=== PATIENT | female | born 1990 | race Caucasian/White ===

== ENCOUNTER 2017-07-31 12:15 | Emergency (ER) | payer MEDICAID ==
[~2017-07-31] VITALS: Ht 160 cm; Wt 77.1 kg
[2017-07-31 12:23] VITALS: BP_SYST 128
[2017-07-31] MEDS ORDERED: NACL 0.9% 1,000 ML IV ONE (12:30)
[2017-07-31] MEDS ORDERED: ONDANSETRON HCL 4 MG/2 ML VIAL IVP ONE (12:30)
[2017-07-31] MEDS ORDERED: DIPHENHYDRAMINE INJ 50 MG/ML VIAL IVP ONE (12:30)
[2017-07-31 12:50] LABS: BASOPHILS # (AUTO) 0.1 K/uL (0.0-0.2); BASOPHILS % (AUTO) 0.7 % (0.0-2.0); EOSINOPHILS # (AUTO) 0.1 K/uL (0.0-0.4); EOSINOPHILS % (AUTO) 1.6 % (0.0-4.0); HEMATOCRIT 43.8 % (36-48); HEMOGLOBIN 14.4 g/dL (12.0-16.0); LYMPHOCYTES # (AUTO) 2.7 K/uL (1.0-5.5); LYMPHOCYTES % (AUTO) 35.6 % (20.5-51.5); MEAN CORPUSCULAR HEMOGLOBIN 29 pg (27-31); MEAN CORPUSCULAR HGB CONC 33 % (32-36); MEAN CORPUSCULAR VOLUME 88 fL (79.0-98.0); MONOCYTES # (AUTO) 0.7 K/uL (0.0-1.0); MONOCYTES % (AUTO) 9.3 % (1.7-9.3); NEUTROPHILS % (AUTO) 52.8 % (40.0-70.0); PLATELET COUNT (AUTO) 337 K/uL (130-430); RED BLOOD CELL COUNT(AUTO) 4.97 MIL/uL (4.2-6.2); RED CELL DISTRIBUTION WIDTH 11.8 % (9.0-15.0); WHITE BLOOD COUNT (AUTO) 7.6 K/uL (4.8-10.8)
[2017-07-31 13:00] LABS: BILIRUBIN,URINE NEGATIVE (NEGATIVE); CLARITY/URINE SL HAZY (CLEAR); COLOR,URINE YELLOW (YELLOW); GLUCOSE,URINE NEGATIVE (NEGATIVE); KETONES,URINE NEGATIVE (NEGATIVE); LEUKOCYTE ESTERASE ,URINE NEGATIVE (NEGATIVE); NITRITE, URINE NEGATIVE (NEGATIVE); PROTEIN URINE NEGATIVE (NEGATIVE); UROBILINOGEN,URINE 0.2 (0.2-1.0)
[2017-07-31 13:01] LABS: BLOOD, URINE TRACE (NEGATIVE)
[2017-07-31 13:06] LABS: CALCIUM 9.4 mg/dL (8.4-11.0); CREATININE 0.7 mg/dL (0.55-1.30); POTASSIUM 3.8 mmol/L (3.5-5.1)
[2017-07-31 13:07] LABS: BACTERIA,URINE RARE /HPF (None Seen); RBC,URINE 0-3 /HPF (0-3); WBC,URINE 0-3 /HPF (0-3)
[2017-07-31 13:21] LABS: ALBUMIN 4.1 g/dL (3.4-4.8); TOTAL BILIRUBIN 0.4 mg/dL (0.0-1.0)
[2017-07-31] MEDS ORDERED: DIPHENOXYLATE HCL/ATROP SULF 2.5 MG TAB PO ONE (13:45)
[2017-07-31 13:55] VITALS: BP_SYST 149
== END 2017-07-31 13:55 | disposition home or self-care (01) ==
LOC: SED 12:15
DX: K52.9 Noninfective gastroenteritis and colitis, unspecified (principal)
CPT/HCPCS: 36415; 80053; 81000; 81025; 83690; 85025; 96361; 96374; 96375; 99284; J1200; J2405; J7030

== ENCOUNTER 2018-02-25 17:07 | Emergency (ER) | payer MEDICAID ==
[~2018-02-25] VITALS: Ht 160 cm; Wt 83.5 kg
[2018-02-25 17:27] VITALS: BP_SYST 150
[2018-02-25] MEDS ORDERED: ONDANSETRON HCL 4 MG/2 ML VIAL IVP ONE ×2 (17:45→19:30)
[2018-02-25] MEDS ORDERED: NACL 0.9% 1,000 ML IV ONE (17:45)
[2018-02-25] MEDS ORDERED: MORPHINE 4 MG/ML INJ. SYRINGE IVP ONE (17:45)
[2018-02-25 18:17] LABS: BASOPHILS # (AUTO) 0.1 K/uL (0.0-0.2); EOSINOPHILS # (AUTO) 0.2 K/uL (0.0-0.4); EOSINOPHILS % (AUTO) 1.6 % (0.0-4.0); HEMATOCRIT 42.8 % (36-48); HEMOGLOBIN 14.1 g/dL (12.0-16.0); LYMPHOCYTES # (AUTO) 2.9 K/uL (1.0-5.5); MEAN CORPUSCULAR HEMOGLOBIN 29 pg (27-31); MEAN CORPUSCULAR HGB CONC 33 % (32-36); MEAN CORPUSCULAR VOLUME 88 fL (79.0-98.0); MONOCYTES % (AUTO) 8.1 % (1.7-9.3); NEUTROPHILS # (AUTO) 8.3 K/uL (1.8-7.7); NEUTROPHILS % (AUTO) 66.3 % (40.0-70.0); PLATELET COUNT (AUTO) 334 K/uL (130-430); RED BLOOD CELL COUNT(AUTO) 4.88 MIL/uL (4.2-6.2); WHITE BLOOD COUNT (AUTO) 12.5 K/uL (4.8-10.8)
[2018-02-25 18:22] LABS: CALCIUM 8.9 mg/dL (8.4-11.0); CREATININE 0.75 mg/dL (0.55-1.30); POTASSIUM 3.6 mmol/L (3.5-5.1)
[2018-02-25 18:27] LABS: ALBUMIN 3.9 g/dL (3.4-4.8); TOTAL BILIRUBIN 0.3 mg/dL (0.0-1.0)
[2018-02-25 18:35] LABS: BILIRUBIN,URINE 1+ (NEGATIVE); BLOOD, URINE 3+ (NEGATIVE); CLARITY/URINE CLOUDY (CLEAR); COLOR,URINE YELLOW (YELLOW); GLUCOSE,URINE NEGATIVE (NEGATIVE); KETONES,URINE TRACE (NEGATIVE); LEUKOCYTE ESTERASE ,URINE TRACE (NEGATIVE); NITRITE, URINE NEGATIVE (NEGATIVE); PROTEIN URINE 1+ (NEGATIVE)
[2018-02-25 18:42] LABS: BACTERIA,URINE MODERATE /HPF (None Seen); RBC,URINE >100 /HPF (0-3)
[2018-02-25] MEDS ORDERED: cefTRIAXone 1 GM IVPB PREMIX 50 ML IV ONE (19:30)
[2018-02-25] MEDS ORDERED: MORPHINE 2 MG/ML INJ. SYRINGE IVP ONE (19:45)
[2018-02-25 21:00] VITALS: BP_SYST 129
== END 2018-02-25 21:00 | disposition home or self-care (01) ==
LOC: SED 17:07
DX: N39.0 Urinary tract infection, site not specified (principal); K59.00 Constipation, unspecified; D72.829 Elevated white blood cell count, unspecified; R03.0 Elevated blood-pressure reading, without diagnosis of hypertension
CPT/HCPCS: 36415; 74176; 80053; 81000; 83605; 83690; 85025; 87040; 87086; 96365; 96375; 96376; 99285; J0696; J2270 ×2; J2405; J7030

== ENCOUNTER 2018-03-04 00:13 | Emergency (ER) | payer MEDICAID ==
[~2018-03-04] VITALS: Ht 160 cm; Wt 83.5 kg
[2018-03-04 00:49] VITALS: BP_SYST 143
[2018-03-04] MEDS ORDERED: NACL 0.9% 1,000 ML IV ONE (05:02)
[2018-03-04 05:15] LABS: BILIRUBIN,URINE NEGATIVE (NEGATIVE); BLOOD, URINE NEGATIVE (NEGATIVE); CLARITY/URINE CLEAR (CLEAR); COLOR,URINE YELLOW (YELLOW); GLUCOSE,URINE NEGATIVE (NEGATIVE); KETONES,URINE NEGATIVE (NEGATIVE); LEUKOCYTE ESTERASE ,URINE NEGATIVE (NEGATIVE); NITRITE, URINE NEGATIVE (NEGATIVE); PROTEIN URINE NEGATIVE (NEGATIVE); UROBILINOGEN,URINE 0.2 (0.2-1.0)
[2018-03-04] MEDS ORDERED: MORPHINE 4 MG/ML INJ. SYRINGE IVP ONE (05:15)
[2018-03-04] MEDS ORDERED: ONDANSETRON HCL 4 MG/2 ML VIAL IVP ONE (05:15)
[2018-03-04] MEDS ORDERED: IOHEXOL 100 ML IV ONE (06:11)
[2018-03-04 06:40] LABS: BASOPHILS # (AUTO) 0.1 K/uL (0.0-0.2); BASOPHILS % (AUTO) 0.9 % (0.0-2.0); EOSINOPHILS # (AUTO) 0.1 K/uL (0.0-0.4); EOSINOPHILS % (AUTO) 1.1 % (0.0-4.0); HEMATOCRIT 43.7 % (36-48); HEMOGLOBIN 14.8 g/dL (12.0-16.0); LYMPHOCYTES # (AUTO) 3.9 K/uL (1.0-5.5); LYMPHOCYTES % (AUTO) 33.9 % (20.5-51.5); MEAN CORPUSCULAR HEMOGLOBIN 30 pg (27-31); MEAN CORPUSCULAR HGB CONC 34 % (32-36); MEAN CORPUSCULAR VOLUME 89 fL (79.0-98.0); MONOCYTES # (AUTO) 0.9 K/uL (0.0-1.0); MONOCYTES % (AUTO) 7.6 % (1.7-9.3); NEUTROPHILS # (AUTO) 6.5 K/uL (1.8-7.7); NEUTROPHILS % (AUTO) 56.5 % (40.0-70.0); PLATELET COUNT (AUTO) 317 K/uL (130-430); RED CELL DISTRIBUTION WIDTH 11.9 % (9.0-15.0); WHITE BLOOD COUNT (AUTO) 11.5 K/uL (4.8-10.8)
[2018-03-04 06:43] LABS: CALCIUM 9.2 mg/dL (8.4-11.0); CREATININE 0.73 mg/dL (0.55-1.30); POTASSIUM 3.6 mmol/L (3.5-5.1)
[2018-03-04 06:47] LABS: ALBUMIN 4.1 g/dL (3.4-4.8); TOTAL BILIRUBIN 0.3 mg/dL (0.0-1.0)
[2018-03-04 07:55] VITALS: BP_SYST 130
== END 2018-03-04 07:55 | disposition home or self-care (01) ==
LOC: SED 00:13
DX: R10.30 Lower abdominal pain, unspecified (principal); R11.2 Nausea with vomiting, unspecified; E03.9 Hypothyroidism, unspecified
CPT/HCPCS: 36415; 74177; 80053; 81003; 83690; 85025; 96361; 96374; 96375; 99285; J2270; J2405; J7030; Q9967

== ENCOUNTER 2018-11-03 15:36 | Emergency (ER) | payer MEDICAID ==
[~2018-11-03] VITALS: Ht 157.5 cm; Wt 79.4 kg
[2018-11-03 15:45] VITALS: BP_SYST 141
[2018-11-03 18:00] VITALS: BP_SYST 140
[2018-11-03] MEDS ORDERED: DIPH-TET-PERTUS Vaccine 0.5 ML VIAL (ADACEL) I.M. ONE (18:00)
== END 2018-11-03 18:00 | disposition home or self-care (01) ==
LOC: SED 15:36
DX: S61.011A Laceration without foreign body of right thumb without damage to nail, initial encounter (principal); L25.9 Unspecified contact dermatitis, unspecified cause; R03.0 Elevated blood-pressure reading, without diagnosis of hypertension; W27.2XXA Contact with scissors, initial encounter; Y93.89 Activity, other specified; Y92.89 Other specified places as the place of occurrence of the external cause; Y99.8 Other external cause status
CPT/HCPCS: 90715; 99283

== ENCOUNTER 2019-10-07 20:17 | Inpatient (IN) | payer MEDICAID ==
[~2019-10-07] VITALS: Ht 160 cm; Wt 90.7 kg
[2019-10-07 20:18] VITALS: BP_SYST 117
--- NOTE | 2019-10-07 20:18 | NUR ---
Patient to ER bed 05 to gown for evaluation. Side rails up. Report given to JESSE Hays.
--- NOTE | 2019-10-07 20:18 | NUR ---
Pt c/o allergic reaction s/p eating a spicy pasta sauce ~1915. Pt states that she is allergic to horse raddish and believes that it may have been in the sauce. Pt states that about 5 minutes later she broke out into hives. She states that she received some relief from a steroid cream and from taking Benadryl 100 mg PO. Pt then developed SOB, so she used an Epi-pen. She then called a nurse hot line and was instructed to go to ER. No hives or rashes noted, airway patent, respirations even and non-labored, mild tachypnea noted. BBS clear. Non-productive cough noted. Pt arrives with 20 GA PIV to LHA placed by EMS ELASTIC CUTTER. Sinus tachycardia noted to bedside chemical processing equipment repairer with HR 150, B/P 127/50. Pt c/o sternal C/P reproducible with palpation. Pt states that she has a hx of tachycardia and has received a stress test in the past with questionable heart attack. Dr. Hutchison notified.
--- NOTE | 2019-10-07 20:27 | NUR ---
ER at bedside examining patient.
[2019-10-07] MEDS ORDERED: NACL 0.9% 1,000 ML IV ONE ×3 (20:31→23:05)
--- NOTE | 2019-10-07 20:35 | NUR ---
Blood collected and sent to lab.
[2019-10-07] MEDS ORDERED: methylPREDNISolone SOD SUCC/PF 62.5 MG/ML VIAL IVP ONE (20:45)
[2019-10-07 20:54] LABS: BASOPHILS # (AUTO) 0.1 K/uL (0.0-0.2); BASOPHILS % (AUTO) 0.6 % (0.0-2.0); EOSINOPHILS # (AUTO) 0.2 K/uL (0.0-0.4); EOSINOPHILS % (AUTO) 1.5 % (0.0-4.0); HEMOGLOBIN 12.8 g/dL (12.0-16.0); LYMPHOCYTES # (AUTO) 6.3 K/uL (1.0-5.5); LYMPHOCYTES % (AUTO) 46.2 % (20.5-51.5); MEAN CORPUSCULAR HEMOGLOBIN 28 pg (27-31); MEAN CORPUSCULAR HGB CONC 32 % (32-36); MEAN CORPUSCULAR VOLUME 88 fL (79.0-98.0); MONOCYTES # (AUTO) 1.4 K/uL (0.0-1.0); MONOCYTES % (AUTO) 10.7 % (1.7-9.3); NEUTROPHILS # (AUTO) 5.5 K/uL (1.8-7.7); PLATELET COUNT (AUTO) 357 K/uL (130-430); RED BLOOD CELL COUNT(AUTO) 4.55 MIL/uL (4.2-6.2); RED CELL DISTRIBUTION WIDTH 13.3 % (9.0-15.0); WHITE BLOOD COUNT (AUTO) 13.5 K/uL (4.8-10.8)
--- NOTE | 2019-10-07 21:00 | NUR ---
Pt denies c/o C/P or SOB, airway patent, no hives noted. No needs verbalized at this time.
[2019-10-07 21:22] LABS: POTASSIUM 2.6 mmol/L (3.5-5.1)
[2019-10-07 21:23] LABS: CALCIUM 8.1 mg/dL (8.4-11.0); CREATININE 0.86 mg/dL (0.55-1.30); TOTAL BILIRUBIN 0.2 mg/dL (0.0-1.0)
--- NOTE | 2019-10-07 21:28 | NUR ---
Pt c/o nausea. HR 128, B/P 143/62.
[2019-10-07] MEDS ORDERED: POTASSIUM CHLORIDE 10 MEQ in NACL 0.9% 1,000 ML IV SCH (21:30)
[2019-10-07] MEDS ORDERED: ONDANSETRON HCL 4 MG/2 ML VIAL IVP ONE (21:30)
[2019-10-07] MEDS ORDERED: POTASSIUM CHLORIDE 20 MEQ TAB.PRT.SR PO ONE (21:30)
[2019-10-07 21:35] LABS: BILIRUBIN,URINE NEGATIVE (NEGATIVE); BLOOD, URINE NEGATIVE (NEGATIVE); COLOR,URINE YELLOW (YELLOW); GLUCOSE,URINE NEGATIVE (NEGATIVE); KETONES,URINE NEGATIVE (NEGATIVE); LEUKOCYTE ESTERASE ,URINE NEGATIVE (NEGATIVE); NITRITE, URINE NEGATIVE (NEGATIVE); PROTEIN URINE NEGATIVE (NEGATIVE); UROBILINOGEN,URINE 0.2 (0.2-1.0)
--- NOTE | 2019-10-07 21:36 | NUR ---
X-ray at bedside.
--- NOTE | 2019-10-07 21:42 | NUR ---
Pt moved to ER bed 7. Pt verbalizes relief in nausea.
[2019-10-07 21:48] LABS: CLARITY/URINE CLEAR (CLEAR)
--- NOTE | 2019-10-07 22:00 | NUR ---
HR 120. Denies c/o C/P or SOB. Dr. Murrieta aware. No needs verbalized at this time.
[2019-10-07] MEDS ORDERED: KCL 20 mEq in 100 mL (PREMIX) 100 ML IV ONE (22:15)
--- NOTE | 2019-10-07 22:30 | NUR ---
Pt c/o burning to LHA r/t Potassium infusion. Rate decreased to 40 mL/hr. Pt verbalizes improvement in pain.
--- NOTE | 2019-10-07 23:05 | NUR ---
T 99, P 130, R 24, B/P 93/72, SPO2 99% RA. Dr. Murrieta notified. NS bolus x 1 Liter now infusing to patent and secure PIV LHA.
--- NOTE | 2019-10-07 23:23 | NUR ---
Patient will be admitted to care of Dr. Shelby. Admitted to Tele unit. Will go to room 134B. Belongings list completed. Complete and up to date summary report printed. SBAR report to be given at bedside with opportunity for questions.
[2019-10-07] MEDS ORDERED: SYN50 PO (23:34)
[2019-10-07] MEDS ORDERED: DICY10CA13 PO (23:34)
[2019-10-07] MEDS ORDERED: ESOM20CA38 PO (23:34)
[2019-10-07] MEDS ORDERED: ATEN-41 PO (23:34)
[2019-10-07] MEDS ORDERED: ESCI10TA PO (23:34)
[2019-10-07] MEDS ORDERED: CYCL-10 PO ×2 (23:34)
[2019-10-07] MEDS ORDERED: LORA10TA7 PO (23:34)
[2019-10-07] MEDS ORDERED: AZU500 PO (23:34)
[2019-10-07] MEDS ORDERED: GABA-531 PO (23:34)
[2019-10-07] MEDS ORDERED: AZEL137S7 NS (23:35)
[2019-10-07] MEDS ORDERED: FLO44 INH (23:35)
--- NOTE | 2019-10-07 23:35 | NUR ---
Medication reconciliation completed with information provided by patient. Any prior medication reconciliation on file was reviewed and corrected.
[2019-10-07 23:39] VITALS: BP_SYST 127
--- NOTE | 2019-10-07 23:39 | NUR ---
ADMISSION NOTE Received patient from ER via gurney. Patient admitted with diagnosis of Allergic Reaction and Hypokalemia under medical supervision of Dr. Shelby. Patient is awake, alert, oriented X4. Patient oriented to hospital room, call light, toileting, pain management and safety-teach back done. Personal belongings checked and Belongings List documented. Call light within reach.
[2019-10-08 00:12] VITALS: BP_SYST 127
--- NOTE | 2019-10-08 01:50 | NUR ---
DR. LO ROUNDS DR. LO AT NURSES STATION. POC DISCUSSED.
[2019-10-08] MEDS ORDERED: methylPREDNISolone SOD SUCC/PF 62.5 MG/ML VIAL IVP ONE (02:15)
[2019-10-08] MEDS ORDERED: NACL 0.9% 1,000 ML IV ONE (02:15)
[2019-10-08] MEDS ORDERED: DIPHENHYDRAMINE INJ 50 MG/ML VIAL IVP PRN (02:15)
[2019-10-08] MEDS ORDERED: ALBUTEROL SULFATE 0.083% 2.5 MG/3 ML VIAL.NEB INH PRN (02:15)
[2019-10-08] MEDS ORDERED: CYCLOBENZAPRINE HCL 10 MG TABLET (FLEXERIL) PO PRN (02:30)
[2019-10-08 02:47] VITALS: BP_SYST 127
[2019-10-08] MEDS: NACL 0.9% 1,000 ML IV SCH ×3 (02:50→20:42)
[2019-10-08] MEDS: HYDROcodone/ACETAMIN 5-325 MG TAB (NORCO/ VICODIN) PO PRN ×2 (02:56→21:01)
[2019-10-08] MEDS: ONDANSETRON HCL 4 MG/2 ML VIAL IVP PRN (02:56)
--- NOTE | 2019-10-08 03:01 | NUR ---
MED PASS/PRN MEDICATIONS ONE TIME DOSE OF SOLU-MEDROL ADMINISTERED ORDERED. PRN MEDICATIONS ZOFRAN AND NORCO ALSO ADMINISTERED PER PT REQUEST FOR NAUSEA AND PAIN. MEDICATION ACTIONS AND POTENTIAL SIDE EFFECTS DISCUSSED. PT TOLERATED WELL. NO S/S OF ACUTE DISTRESS. SAFETY MAINTAINED. WILL MONITOR.
--- NOTE | 2019-10-08 05:00 | NUR ---
AMBULATED TO RESTROOM PT AMBULATED TO RESTROOM WITH NURSE ASSIST. GAIT NOTED TO STEADY ALTHOUGH PT WALKS WITH A BOOT ON HER RIGHT FOOT. PT TOLERATED ACTIVITY WELL. NO S/S OF DISTRESS. PT RETURNED SAFELY TO BED AND REPOSITIONED HERSELF FOR COMFORT. RIGHT LEG ELEVATED ON PILLOW. SAFETY PRECAUTIONS MAINTAINED. WILL MONITOR.
[2019-10-08 05:57] LABS: BASOPHILS % (AUTO) 0.1 % (0.0-2.0); HEMATOCRIT 37.6 % (36-48); HEMOGLOBIN 12.3 g/dL (12.0-16.0); LYMPHOCYTES # (AUTO) 1.1 K/uL (1.0-5.5); LYMPHOCYTES % (AUTO) 10.3 % (20.5-51.5); MEAN CORPUSCULAR HEMOGLOBIN 29 pg (27-31); MEAN CORPUSCULAR HGB CONC 33 % (32-36); MEAN CORPUSCULAR VOLUME 87 fL (79.0-98.0); MONOCYTES # (AUTO) 0.1 K/uL (0.0-1.0); MONOCYTES % (AUTO) 0.6 % (1.7-9.3); NEUTROPHILS # (AUTO) 9.5 K/uL (1.8-7.7); PLATELET COUNT (AUTO) 296 K/uL (130-430); RED BLOOD CELL COUNT(AUTO) 4.31 MIL/uL (4.2-6.2); WHITE BLOOD COUNT (AUTO) 10.7 K/uL (4.8-10.8)
[2019-10-08 06:32] LABS: ALBUMIN 3.9 g/dL (3.4-4.8); CALCIUM 8.3 mg/dL (8.4-11.0); CREATININE 0.72 mg/dL (0.55-1.30); POTASSIUM 3.8 mmol/L (3.5-5.1); TOTAL BILIRUBIN 0.2 mg/dL (0.0-1.0)
--- NOTE | 2019-10-08 06:49 | NUR ---
CLOSING NOTE PT RESTING IN BED. NO S/S OF ACUTE DISTRESS NOTED AT THIS TIME. BREATHING EVEN AND UNLABORED TO ROOM AIR. SAFETY AND FALL PRECAUTIONS IN PLACE. NO S/S OF ANY ALLERGIC REACTIONS. CALL LIGHT WITHIN REACH. WILL CONTINUE TO MONITOR UNTIL PT CARE ENDORSED TO DAY SHIFT RN.
--- NOTE | 2019-10-08 07:35 | NUR ---
INITIAL NOTE PT AWAKE, DENIES ANY SOB, COUGH, OR RASH. IVF INFUSING WELL. SCD'S IN PLACE. CALL LIGHT WITHIN REACH, BED IN LOW AND LOCKED POSITION WITH BED ALARM ON.
[2019-10-08 08:00] VITALS: BP_SYST 139
--- NOTE | 2019-10-08 08:25 | NUR ---
VOMITING YELLOW EMESIS X1. GAVE PT EMESIS BASIN. HEAD OF BEAD UP. WILL CONTINUE TO MONITOR. Addendum: 10/08/19 at 1500 by Dena Reddy RN WRONG PT ENTRY, DISREGARD.
--- NOTE | 2019-10-08 09:30 | NUR ---
RN ROUNDS MORNING MEDICATIONS ADMINISTERED. PT TOLERATED WELL. ASSISTED PT WITH IV POLE, PT AMBULATED TO RESTROOM WITH STEADY GAIT. ASSISTED BACK TO BED.
[2019-10-08] MEDS: LEVOTHYROXINE SODIUM 0.05 MG TABLET PO SCH (09:38)
[2019-10-08] MEDS: DICYCLOMINE HCL 10 MG CAPSULE PO SCH ×2 (09:39→20:41)
[2019-10-08] MEDS: ATENOLOL 25 MG TABLET(TENORMIN) PO SCH (09:39)
[2019-10-08] MEDS: CITALOPRAM HYDROBROMIDE 20 MG TABLET PO SCH (09:40)
[2019-10-08] MEDS: LORATADINE 10 MG TABLET PO SCH (09:40)
[2019-10-08] MEDS: GABAPENTIN 300 MG CAPSULE PO SCH ×3 (09:40→20:41)
[2019-10-08] MEDS: CYCLOBENZAPRINE HCL 10 MG TABLET (FLEXERIL) PO SCH (09:40)
[2019-10-08] MEDS: sulfASALAZINE 500 MG TABLET (AZULFIDINE) PO SCH ×4 (09:40→20:41)
--- NOTE | 2019-10-08 11:30 | NUR ---
RN ROUNDS PT RESTING IN BED, NO ACUTE DISTRESS NOTED, BREATHING EVEN AND UNLABORED.
[2019-10-08 12:00] VITALS: BP_SYST 124
--- NOTE | 2019-10-08 12:43 | NUR ---
SS NOTES/DCP: MANAGER ORDER phoned pt @ [phone]. Pt is a 29 y/o female who came in via ED for allergic reaction. Pt is independent with her ADL's but is currently using a walking boot. Pt has a history of depression and anxiety but has not seen a therapist or a psychiatrist for it. Pt states she is a "little depressed now". Pt states when she is overwhelmed and needed support, she calls her grandmother and grandmother "prays with me". Pt identified her grandmother as her support system. Pt denies suicide ideation currently and in the past. Pt denies any substance use/abuse. Pt states she does not have a source of income but is thinking of renewing her SSI. MANAGER ORDER provided patient with mental health resources and SS phone number if questions/inquiries arise or for additional support. No further SS needs identified but will remain available.
--- NOTE | 2019-10-08 13:30 | NUR ---
RN ROUNDS NO CHANGE IN ASSESSMENT. UPDATED PT ON POC. INFORMED PT THAT NEW CONSULT DR. NAVARRO WILL BE SEEING HER. PT VERBALIZED UNDERSTANDING.
--- NOTE | 2019-10-08 13:33 | NUR ---
CONSULT PULMO. CONSULTING MD: DR. NAVARRO DIALED: [phone] SPOKE TO: DR. NAVARRO ORDERED BY: DR. GONZALEZ REASON FOR CONSULT: ALLERGIC REACTION
--- NOTE | 2019-10-08 15:30 | NUR ---
RN ROUNDS NO CHANGE IN ASSESSMENT, WILL CONTINUE TO MONITOR.
[2019-10-08 17:28] VITALS: BP_SYST 125
--- NOTE | 2019-10-08 17:30 | NUR ---
RN ROUNDS MADE COPY OF PTS STRESS TEST AND 2D ECHO RESULTS THAT SHE HAD DONE BACK IN JULY. COPIES INSIDE PT CHART. NO CHANGE IN ASSESSMENT. WILL CONTINUE TO MONITOR.
--- NOTE | 2019-10-08 18:50 | NUR ---
CLOSING NOTE PT RESTING IN BED, NO ACUTE DISTRESS NOTED, BREATHING EVEN AND UNLABORED. IVF INFUSING WELL. SCD'S OFF AT THIS TIME. CALL LIGHT WITHIN REACH, BED IN LOW AND LOCKED POSITION WITH BED ALARM ON. WILL CONTINUE TO MONITOR UNTIL PT CARE IS ENDORSED TO BURR MACHINE OPERATOR RN.
--- NOTE | 2019-10-08 19:30 | NUR ---
OPENING NOTES RECEIVED SBAR REPORT. PT RESTING IN BED, NO S/S OF ACUTE DISTRESS NOTED AT THIS TIME, BREATHING EVEN AND UNLABORED TO ROOM AIR. IVF INFUSING ORDERED RATE. CALL LIGHT WITHIN REACH, BED IN LOW AND LOCKED POSITION WITH BED ALARM ON. WILL MONITOR.
[2019-10-08 20:00] VITALS: BP_SYST 121
--- NOTE | 2019-10-08 21:01 | NUR ---
NORCO/PAIN MEDICATION ADMINISTERED NORCO MEDICATION. DISCUSSED MEDICATION ACTIONS AND POTENTIAL SIDE EFFECTS WITH PT. PT VERBALIZED UNDERSTANDING. PT TOLERATED WELL. NO S/S OF ADVERSE REACTION NOTED AT THIS TIME. SAFETY PRECAUTIONS IN PLACE. CALL LIGHT WITHIN REACH. WILL CONTINUE TO MONITOR. Addendum: 10/09/19 at 0313 by Alee Leos RN ALSO ADMINISTERED BENADRYL PER PT REQUEST ORDERED PRN.
[2019-10-08] MEDS ORDERED: guaiFENesin 200 MG/CODEINE 20 MG/ 10 ML UDC PO PRN (23:00)
[2019-10-08] MEDS ORDERED: BENZOCAINE/MENTHOL 1 EACH LOZENGE MM PRN (23:00)
--- NOTE | 2019-10-08 23:08 | NUR ---
CEPACOL SORE THROAT/ROBITUSSIN PT EXPERIENCING SEVERE COUGHING AT THIS TIME. ADMINISTERED CEPACOL AND ROBITUSSIN. DISCUSSED MEDICATION ACTIONS AND POTENTIAL SIDE EFFECTS. PT VERBALIZED UNDERSTANDING. SAFETY PRECAUTIONS MAINTAINED. CALL LIGHT WITHIN REACH. WILL CONTINUE TO MONITOR.
--- NOTE | 2019-10-09 01:00 | NUR ---
SLEEPING PT RESTING IN BED. NO S/S OF ACUTE DISTRESS NOTED AT THIS TIME. BREATHING EVEN AND UNLABORED TO ROOM AIR. SAFETY PRECAUTIONS IN PLACE. NO S/S OF ANY ALLERGIC REACTIONS. CALL LIGHT WITHIN REACH. WILL CONTINUE TO MONITOR.
[2019-10-09 01:39] VITALS: BP_SYST 122
[2019-10-09] MEDS: ONDANSETRON HCL 4 MG/2 ML VIAL IVP PRN ×2 (03:39→09:39)
[2019-10-09] MEDS: NACL 0.9% 1,000 ML IV SCH (03:39)
--- NOTE | 2019-10-09 04:00 | NUR ---
IV RE-INSERTION: Complaining of pain to IV site. Restarted on RIGHT HAND . Successful after 1 attempts. Resumed current IVF. Will observe for any signs of infiltration.
[2019-10-09] MEDS: HYDROcodone/ACETAMIN 5-325 MG TAB (NORCO/ VICODIN) PO PRN (04:20)
--- NOTE | 2019-10-09 04:20 | NUR ---
NORCO/PAIN MEDICATION PT REPORTING LEFT HAND PAIN. ADMINISTERED NORCO MEDICATION. DISCUSSED MEDICATION ACTIONS AND POTENTIAL SIDE EFFECTS WITH PT. PT VERBALIZED UNDERSTANDING. PT TOLERATED WELL. NO S/S OF ADVERSE REACTION NOTED AT THIS TIME. SAFETY PRECAUTIONS IN PLACE. CALL LIGHT WITHIN REACH. WILL CONTINUE TO MONITOR.
--- NOTE | 2019-10-09 06:35 | NUR ---
CLOSING NOTE PT RESTING IN BED, NO ACUTE DISTRESS NOTED, BREATHING EVEN AND UNLABORED. IVF INFUSING ORDERED RATE. SCD'S OFF AT THIS TIME. CALL LIGHT WITHIN REACH, BED IN LOW AND LOCKED POSITION WITH BED ALARM ON. IV AT RIGHT HAND, PATENT. WILL CONTINUE TO MONITOR UNTIL PT CARE IS ENDORSED TO DAY SHIFT RN.
[2019-10-09 07:00] VITALS: BP_SYST 120
--- NOTE | 2019-10-09 07:17 | NUR ---
SPOKE TO DR. GONZALEZ REGARDING PT'S REPORT OF UPPER EXTREMITY SWELLING. MD ORDERED TO STOP IVF AT THIS TIME. WILL CARRY OUT.
[2019-10-09 08:00] VITALS: BP_SYST 120
[2019-10-09] MEDS: LEVOTHYROXINE SODIUM 0.05 MG TABLET PO SCH (08:38)
[2019-10-09] MEDS: CYCLOBENZAPRINE HCL 10 MG TABLET (FLEXERIL) PO SCH (08:39)
[2019-10-09] MEDS: ATENOLOL 25 MG TABLET(TENORMIN) PO SCH (09:45)
[2019-10-09] MEDS: CITALOPRAM HYDROBROMIDE 20 MG TABLET PO SCH (09:45)
[2019-10-09] MEDS: GABAPENTIN 300 MG CAPSULE PO SCH ×2 (09:45→15:03)
[2019-10-09] MEDS: sulfASALAZINE 500 MG TABLET (AZULFIDINE) PO SCH ×2 (09:45→15:03)
[2019-10-09] MEDS: LORATADINE 10 MG TABLET PO SCH (09:45)
[2019-10-09] MEDS: DICYCLOMINE HCL 10 MG CAPSULE PO SCH (09:46)
--- NOTE | 2019-10-09 09:54 | NUR ---
PAGED PAGED LYNSEY GRANADOS AT [phone] SPOKE WITH GAL.
[2019-10-09 12:24] VITALS: BP_SYST 125
[2019-10-09 16:39] VITALS: BP_SYST 125
[2019-10-09 16:58] VITALS: BP_SYST 125
--- NOTE | 2019-10-09 17:35 | NUR ---
PT remains A/O x4. No distress noted or reported. All safety precautions in place during shift. Pt safety maintained during shift. Picked up pt's at home meds from Pharmacist. Returned pt's at home meds to pt. Pt signed that she has all belongings and at home meds from Pharmacy. Discharge instructions given to pt. Pt verbalized understanding. Pt given form and phone number to retrieve Medical Records. Pt to follow up re: medical records after discharge. Accompanied pt to her mother's private vehicle via W/C. Pt safely discharged.
== END 2019-10-09 17:55 | disposition home or self-care (01) | DRG 811 ==
LOC: SED 20:17 → STU 21:49
PROVIDERS: ADMIT Internal Medicine Hospice and Palliative Medicine; ATTEND Internal Medicine Hospice and Palliative Medicine
DX: T78.00XA Anaphylactic reaction due to unspecified food, initial encounter (principal); E03.9 Hypothyroidism, unspecified; L50.0 Allergic urticaria; G89.29 Other chronic pain; E87.6 Hypokalemia; M79.604 Pain in right leg; R00.0 Tachycardia, unspecified; F32.9 Major depressive disorder, single episode, unspecified; I10 Essential (primary) hypertension; Z91.018 Allergy to other foods; Z79.899 Other long term (current) drug therapy
CPT/HCPCS: 36415; 71045; 80053; 81003; 83735-TC; 84484; 85025; 93005; 93306; 94640; 96361; 96365; 96375; 99285; G0378; J1200; J2405; J2930; J3480; J7030; J7613